=== PATIENT | female | born 1970 | race Caucasian/White ===

== ENCOUNTER 2020-08-29 10:04 | Outpatient (CLI) | payer BC, SELFPAY | END 2020-08-29 10:05 | disposition home or self-care (01) | PROVIDERS: Visit Provider Otolaryngology | DX: H91.91 Unspecified hearing loss, right ear (principal); H93.11 Tinnitus, right ear | CPT/HCPCS: 92557; 92567 ==

== ENCOUNTER 2021-12-01 13:03 | Outpatient (RCR) | payer BC, SELFPAY ==
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
== END 2021-12-01 14:57 | disposition home or self-care (01) ==
LOC: CHSOT 13:03
DX: C50.512 Malignant neoplasm of lower-outer quadrant of left female breast (principal)
CPT/HCPCS: 97110; 97165

== ENCOUNTER 2023-08-29 16:07 | Emergency (ER) | payer OTHER, SELFPAY ==
[2023-08-29 16:14] VITALS: BP 136/70; PULSE 104; RESP 16; TEMP 36.4; O2SAT 97
[2023-08-29 16:18] VITALS: BP 136/70; PULSE 104; RESP 16; TEMP 36.4; O2SAT 97
--- NOTE | 2023-08-29 16:24 | ED.URI ---
HPI - URI/Sore Throat General Chief Complaint: Upper Respiratory Infection Stated Complaint: congestion/sinus/cough Time Seen by Provider: 08/29/23 16:24 Source: patient, RN notes reviewed and old records reviewed Mode of arrival: ambulatory Limitations: no limitations History of Present Illness HPI Narrative: 53-year-old female to [facility] Care for complaint of cough with green sputum, sinus pain, bilateral ear pressure and chest congestion for 5 days. Patient denies fever, sore throat, shortness of breath, chest pain, allergies, pertinent medical history. Patient able to tolerate fluids by mouth. Respirations even and nonlabored. Patient in no acute distress Related Data Home Medications Medication Instructions Recorded Confirmed hydrocodone 10 mg-acetaminophen tablet 08/29/23 325 mg tablet Allergies Allergy/AdvReac Type Severity Reaction Status Date / Time No Known Allergies Allergy Unverified 02/23/18 19:54 Review of Systems Review of Systems: All systems reviewed & are unremarkable except as noted in HPI and below Constitutional: Constitutional: Reports as per HPI, Denies body ache(s), Denies chills and Denies fever(s) Eyes: Eyes: Reports no additional eye complaints ENT: Reports as per HPI, Reports otalgia ( bilateral), Denies nasal congestion, Denies nasal discharge, Reports sinus pain and Reports sinus pressure Cardiovascular: Cardiovascular: Reports no additional cardiovascular complaints, Denies chest pain and Denies dyspnea Respiratory: Respiratory: Reports no additional respiratory complaints, Reports cough ( green sputum) and Denies dyspnea Gastrointestinal: Gastrointestinal: Denies nausea Musculoskeletal: Musculoskeletal: Reports as per HPI and Denies myalgias Neurologic: Reports system reviewed and no additional complaints, except as documented Psychiatric: Psychiatric: Reports no additional psychiatric complaints [facility] Family History Family History Father Alcoholism Heart disease Mother Depression Thyroid disorder Sibling Asthma Other Asthma Social History Social History Smoking status: Never smoker Alcohol intake: current Substance use: never Substance use type: does not use Comments At the time of my signature, I reviewed and agree with the nursing past medical, surgical, social, and family history. There is no relevant family history pertinent to the patient complaint. Exam Const: General: cooperative, no acute distress, alert, ill appearing acutely, tired appearing, uncomfortable and well nourished Nutritional Appearance: well nourished Orientation/consciousness: patient oriented x3 Limitations: no limitations HENMT: Head: normal to inspection Ears: external ears normal and TM abnormal bulging bilateral and diffuse, erythematous bilateral and diffuse and with fluid behind the TM bilateral and diffuse Face/Nose/Sinus: Normal external nose present, Normal nares present, normal facial exam, No erythema and No edema Face and sinus: normal facial exam, no erythema and no edema Mouth: Yes Normal oral and palatal mucosa present Throat: postnasal drainage Eyes: General: appearance normal, both eyes and all related structures Neck: Neck: normal visual inspection, full ROM and no meningeal signs Lymphatic: no lymphadenopathy noted and no lymphedema noted Chest: Chest palpation & inspection: normal inspection of the chest Resp: Effort & Inspection: normal respiratory effort and able to speak in complete sentences Auscultation: bronchial breath sounds bilateral Cardio: Jugular venous distension: no JVD Rate: regular rate Rhythm: regular rhythm Back/Spine/Pelvis: Cervical Spine: cervical ROM normal Skin: General skin exam: normal color, no rashes or lesions noted and turgor normal Neuro: General: patient oriented x3, gait normal, mov
== END 2023-08-29 17:02 | disposition home or self-care (01) ==
PROVIDERS: Emergency Provider Nurse Practitioner Family; PCP Physician Assistant
DX: J40 Bronchitis, not specified as acute or chronic (principal)
CPT/HCPCS: 99213; G0463

== ENCOUNTER 2023-10-27 09:52 | Emergency (ER) | payer OTHER, SELFPAY ==
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
--- NOTE | ~2023-10-27 | XR_ITS ---
Cervical Spine: AP, lateral, open-mouth views Clinical History: Pain Findings: The normal lordotic curve is maintained. No fracture or subluxation identified. There is mo derate to advanced degenerative disc narrowing throughout cervical spine. There is moderate to advanc ed facet arthropathy throughout the cervical spine. Pre-vertebral soft tissues are unremarkable. Impression: Moderate to advanced degenerative spondylosis, as above. No acute fracture or subluxation identified. Reviewed, dictated and finalized at location [facility]. Impression: Moderate to advanced degenerative spondylosis, as above. No acute fracture or subluxation identified.
--- NOTE | ~2023-10-27 | XR_ITS ---
Lumbosacral Spine: AP and lateral views Clinical History: Pain Findings: The normal lordotic curve is maintained. There are mild anterior wedging deformities of L1 and L2, age indeterminate. There is a 5 mm anterolisthesis of L4 over L5. There is severe facet arthr opathy at L4-L5 and L5-S1. Intervertebral disc spaces are relatively well-preserved. The sacroiliac joints are normally outlined. Impression: Mild anterior wedging deformities of L1 and L2, age indeterminate. 5 mm anterolisthesis of L4-L5. Facet arthropathy, as above. Reviewed, dictated and finalized at location . Impression: Mild anterior wedging deformities of L1 and L2, age indeterminate. 5 mm anterolisthesis of L4-L5. Facet arthropathy, as above.
[2023-10-27 10:04] VITALS: BP 137/84; PULSE 83; RESP 16; TEMP 36.4; O2SAT 100
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
== END 2023-10-27 11:44 | disposition home or self-care (01) ==
PROVIDERS: Emergency Provider Registered Nurse; PCP Physician Assistant
DX: M25.512 Pain in left shoulder (principal); M54.50 Low back pain, unspecified; M54.2 Cervicalgia; V43.52XA Car driver injured in collision with other type car in traffic accident, initial encounter; J45.909 Unspecified asthma, uncomplicated; Z85.3 Personal history of malignant neoplasm of breast; Z90.10 Acquired absence of unspecified breast and nipple; Z87.891 Personal history of nicotine dependence
CPT/HCPCS: 72050; 72100; 72110; 73030; 99214; G0463